=== PATIENT | female | born 1980 | race Caucasian/White ===

== ENCOUNTER 2022-01-26 08:13 | Inpatient (IN) | payer MEDICARE ==
[~2022-01-26] VITALS: Ht 167.6 cm; Wt 63.0 kg
[2022-01-26 09:22] LABS: BASOPHILS % (AUTO) 0.5 % (0.0-2.0); EOSINOPHILS % (AUTO) 0.4 % (1.0-6.0); HEMATOCRIT 42.8 % (36-46); HEMOGLOBIN 14.1 g/dL (12.0-16.0); LYMPHOCYTES # (AUTO) 2.2 K/uL (1.0-4.8); LYMPHOCYTES % (AUTO) 20.4 % (22.0-44.0); MEAN CORPUSCULAR HEMOGLOBIN 27.7 pg (26.0-34.0); MEAN CORPUSCULAR VOLUME 84 fL (80-100); MONOCYTES # (AUTO) 1.1 K/uL (0.1-1.0); MONOCYTES % (AUTO) 10.2 % (2.0-9.0); NEUTROPHILS # (AUTO) 7.4 K/uL (1.8-7.7); NEUTROPHILS % (AUTO) 68.5 % (40.0-70.0); PLATELET COUNT (AUTO) 367 K/uL (150-450); RED CELL DISTRIBUTION WIDTH 14.4 % (11.5-14.5)
[2022-01-26] MEDS ORDERED: DiphenhydrAMINE HCL 50 MG/ML VIAL IM ONE (09:30)
[2022-01-26] MEDS ORDERED: LORazepam 2 MG/ML VIAL IM ONE (09:30)
[2022-01-26] MEDS ORDERED: HALOPERIDOL LACTATE 5 MG/ML VIAL IM ONE (09:30)
[2022-01-26 09:38] LABS: ALANINE AMINOTRANSFERASE 95 U/L (12-78); ALBUMIN 3.3 g/dL (3.4-5.0); ALKALINE PHOSPHATASE 79 U/L (46-116); ANION GAP 16 mmol/L (8-16); ASPARTATE AMINOTRANSFERASE 129 U/L (15-37); BILIRUBIN,TOTAL 0.6 mg/dL (0.1-1.0); CALCIUM, TOTAL 9.5 mg/dL (8.8-10.5); CARBON DIOXIDE 26 mmol/L (22-29); CHLORIDE 98 mmol/L (98-107); CREATININE 1.33 mg/dL (0.60-1.30); GLUCOSE,RANDOM 139 mg/dL (70-110); SODIUM SERUM 140 mmol/L (136-145); TOTAL PROTEIN, SERUM 8.1 g/dL (6.4-8.2); UREA NITROGEN, BLOOD 21 mg/dL (7-18)
[2022-01-26 09:44] LABS: GLOMERULAR FILTR. RATE CALC 44 mL/min (>60); POTASSIUM 2.7 mmol/L (3.5-5.1)
[2022-01-26] MEDS ORDERED: POTASSIUM CHLORIDE 10% 40 MEQ/30 ML LIQUID UDCUP PO ONE ×2 (10:00→11:30)
[2022-01-26 11:26] LABS: AMPHET/METH SCREEN,URINE NEGATIVE (NEGATIVE); BARBITURATE SCREEN, URINE NEGATIVE (NEGATIVE); BENZODIAZEPINES SCREEN,URINE NEGATIVE (NEGATIVE); CANNABINOID SCREEN,URINE POSITIVE (NEGATIVE); COCAINE SCREEN,URINE NEGATIVE (NEGATIVE); METHADONE SCREEN, URINE NEGATIVE (NEGATIVE); OPIATE SCREEN,URINE NEGATIVE (NEGATIVE)
[2022-01-26 11:29] LABS: PHENCYCLIDINE SCREEN,URINE NEGATIVE (NEGATIVE)
[2022-01-26 11:50] LABS: COVID AG,FIA SOURCE NASAL SWAB
[2022-01-26] MEDS ORDERED: LORazepam 2 MG TABLET PO ONE (13:30)
[2022-01-26] MEDS ORDERED: OLANZapine 5 MG TABLET PO ONE (13:30)
[2022-01-26] MEDS ORDERED: DiphenhydrAMINE HCL 25 MG CAPSULE PO ONE (13:30)
[2022-01-26 18:32] VITALS: BP 136/91
[2022-01-26] MEDS: ZOLPIDEM TARTRATE 10 MG TABLET PO PRN (21:05)
[2022-01-27] MEDS: OLANZapine 5 MG RAPDIS TABLET PO PRN ×3 (00:37→21:51)
[2022-01-27 03:12] VITALS: BP 138/84
[2022-01-27] MEDS: LORazepam 2 MG TABLET PO PRN ×4 (03:12→21:28)
[2022-01-27 06:35] LABS: ALANINE AMINOTRANSFERASE 96 U/L (12-78); ALBUMIN 3.1 g/dL (3.4-5.0); ALKALINE PHOSPHATASE 70 U/L (46-116); ANION GAP 16 mmol/L (8-16); ASPARTATE AMINOTRANSFERASE 85 U/L (15-37); BILIRUBIN,TOTAL 0.5 mg/dL (0.1-1.0); CALCIUM, TOTAL 9.1 mg/dL (8.8-10.5); CARBON DIOXIDE 24 mmol/L (22-29); CHLORIDE 101 mmol/L (98-107); CREATININE 0.95 mg/dL (0.60-1.30); GLUCOSE,RANDOM 160 mg/dL (70-110); POTASSIUM 3.3 mmol/L (3.5-5.1); SODIUM SERUM 141 mmol/L (136-145); TOTAL PROTEIN, SERUM 7.7 g/dL (6.4-8.2); UREA NITROGEN, BLOOD 19 mg/dL (7-18)
[2022-01-27 06:47] LABS: GLOMERULAR FILTR. RATE CALC > 60 mL/min (>60)
[2022-01-27] MEDS ORDERED: POTASSIUM CHLORIDE 20 MEQ ER TABLET PO ONE (08:15)
[2022-01-27] MEDS ORDERED: MAGNESIUM HYDROXIDE SUSPENSION 30 ML UDCUP PO PRN (09:45)
[2022-01-27] MEDS ORDERED: PROMETHAZINE HCL 25 MG TABLET PO PRN (09:45)
[2022-01-27] MEDS ORDERED: LOPERAMIDE HCL 2 MG CAPSULE PO PRN (09:45)
[2022-01-27] MEDS ORDERED: GuaiFENesin/D-METHORPHAN [SUGAR-FREE] 200-20MG/10 ML SYRUP UDCUP PO PRN (09:45)
[2022-01-27] MEDS ORDERED: ACETAMINOPHEN 325 MG TABLET PO PRN (09:45)
[2022-01-27] MEDS: OLANZapine 5 MG RAPDIS TABLET PO SCH ×2 (13:00→15:59)
[2022-01-27] MEDS: THIAMINE 100 MG TABLET PO SCH (16:00)
[2022-01-27 16:07] VITALS: BP 143/77
[2022-01-27] MEDS ORDERED: IBUPROFEN 600 MG TABLET PO PRN (16:45)
[2022-01-27 20:12] VITALS: BP 134/78
[2022-01-27] MEDS: MELATONIN 5 MG TABLET PO SCH (20:20)
[2022-01-27] MEDS: DIVALPROEX SODIUM 500 MG ER TABLET PO SCH (20:20)
[2022-01-28] MEDS ORDERED: HALOPERIDOL LACTATE 5 MG/ML VIAL IM ONE (00:45)
[2022-01-28] MEDS ORDERED: LORazepam 2 MG/ML VIAL ONE (00:47)
[2022-01-28] MEDS ORDERED: HALOPERIDOL LACTATE 5 MG/ML VIAL ONE (00:48)
[2022-01-28] MEDS ORDERED: DiphenhydrAMINE HCL 50 MG/ML VIAL ONE (00:49)
[2022-01-28] MEDS ORDERED: DiphenhydrAMINE HCL 50 MG/ML VIAL IM ONE (01:00)
[2022-01-28] MEDS ORDERED: LORazepam 2 MG/ML VIAL IM ONE (01:00)
[2022-01-28] MEDS: ZOLPIDEM TARTRATE 10 MG TABLET PO PRN (01:51)
[2022-01-28] MEDS: THIAMINE 100 MG TABLET PO SCH ×2 (07:48→17:08)
[2022-01-28] MEDS: FOLIC ACID 1 MG TABLET PO SCH (07:48)
[2022-01-28] MEDS: LORazepam 2 MG TABLET PO PRN (07:48)
[2022-01-28] MEDS: OMEGA-3/DHA/EPA/FISH OIL 1,000 MG CAPSULE PO SCH (07:48)
[2022-01-28] MEDS: NALTREXONE HCL 50 MG TABLET PO SCH (07:49)
[2022-01-28] MEDS: MULTIVITAMINS WITH MINERALS, THERAPEUTIC TABLET PO SCH (07:49)
[2022-01-28] MEDS: OLANZapine 5 MG RAPDIS TABLET PO SCH ×3 (07:49→17:08)
[2022-01-28 08:00] VITALS: BP 141/77
[2022-01-28 08:48] LABS: ALANINE AMINOTRANSFERASE 98 U/L (12-78); ALBUMIN 3.3 g/dL (3.4-5.0); ALKALINE PHOSPHATASE 69 U/L (46-116); ANION GAP 7 mmol/L (8-16); ASPARTATE AMINOTRANSFERASE 56 U/L (15-37); BILIRUBIN,TOTAL 0.6 mg/dL (0.1-1.0); CALCIUM, TOTAL 9.5 mg/dL (8.8-10.5); CARBON DIOXIDE 26 mmol/L (22-29); CHLORIDE 102 mmol/L (98-107); GLUCOSE,RANDOM 118 mg/dL (70-110); POTASSIUM 3.8 mmol/L (3.5-5.1); SODIUM SERUM 135 mmol/L (136-145); TOTAL PROTEIN, SERUM 7.8 g/dL (6.4-8.2); UREA NITROGEN, BLOOD 19 mg/dL (7-18)
[2022-01-28 08:55] LABS: HEMOGLOBIN A1C 5.6 % (3.8-5.6)
[2022-01-28 08:58] LABS: GLOMERULAR FILTR. RATE CALC > 60 mL/min (>60)
[2022-01-28] MEDS ORDERED: FLUoxetine HCL 20 MG CAPSULE PO SCH (09:00)
[2022-01-28 09:55] LABS: CHOL/HDL RATIO 4.6 (3.9-5.7); FREE T4 (FREE THYROXINE) 1.84 ng/dL (0.76-1.46); THYROID STIMULATING HORMONE 1.8 uIU/mL (0.36-3.74)
[2022-01-28 16:59] VITALS: BP 130/70
[2022-01-28] MEDS: MELATONIN 5 MG TABLET PO SCH (20:23)
[2022-01-28] MEDS: DIVALPROEX SODIUM 500 MG ER TABLET PO SCH (21:00)
[2022-01-29] MEDS: LORazepam 2 MG TABLET PO PRN ×3 (00:04→17:57)
[2022-01-29] MEDS: OLANZapine 5 MG RAPDIS TABLET PO PRN (00:05)
[2022-01-29 08:00] VITALS: BP 119/83
[2022-01-29] MEDS: FOLIC ACID 1 MG TABLET PO SCH (08:39)
[2022-01-29] MEDS: THIAMINE 100 MG TABLET PO SCH ×2 (08:39→17:58)
[2022-01-29] MEDS: MULTIVITAMINS WITH MINERALS, THERAPEUTIC TABLET PO SCH (08:39)
[2022-01-29] MEDS: OMEGA-3/DHA/EPA/FISH OIL 1,000 MG CAPSULE PO SCH (08:39)
[2022-01-29] MEDS: OLANZapine 5 MG RAPDIS TABLET PO SCH ×3 (08:40→16:17)
[2022-01-29] MEDS: NALTREXONE HCL 50 MG TABLET PO SCH (08:48)
[2022-01-29 11:07] LABS: HEPATITIS C AB (EIA) <0.1 s/co ratio (0.0-0.9)
[2022-01-29] MEDS: HydrOXYzine PAMOATE 50 MG CAPSULE PO PRN ×2 (12:15→16:17)
[2022-01-29 16:18] VITALS: BP 99/48
[2022-01-29] MEDS: MELATONIN 5 MG TABLET PO SCH (21:30)
[2022-01-29] MEDS: VALPROIC ACID 250 MG/5 ML SOLUTION UDCUP PO SCH (21:30)
[2022-01-30] MEDS: OMEGA-3/DHA/EPA/FISH OIL 1,000 MG CAPSULE PO SCH (08:05)
[2022-01-30] MEDS: MULTIVITAMINS WITH MINERALS, THERAPEUTIC TABLET PO SCH ×2 (08:05→08:32)
[2022-01-30] MEDS: OLANZapine 5 MG RAPDIS TABLET PO SCH ×4 (08:05→16:31)
[2022-01-30] MEDS: THIAMINE 100 MG TABLET PO SCH ×3 (08:05→16:31)
[2022-01-30] MEDS: NALTREXONE HCL 50 MG TABLET PO SCH ×3 (08:06→08:32)
[2022-01-30] MEDS: HydrOXYzine PAMOATE 50 MG CAPSULE PO PRN ×2 (08:06→23:43)
[2022-01-30] MEDS: FOLIC ACID 1 MG TABLET PO SCH ×2 (08:06→08:31)
[2022-01-30 08:32] VITALS: BP 115/81
[2022-01-30] MEDS ORDERED: OLAN5TAB94 PO (15:53)
[2022-01-30] MEDS ORDERED: VALP250S23 PO (15:53)
[2022-01-30] MEDS ORDERED: MELA5TAB40 PO (15:53)
[2022-01-30] MEDS ORDERED: OMEG-135 PO (15:53)
[2022-01-30] MEDS: MELATONIN 5 MG TABLET PO SCH (20:14)
[2022-01-30] MEDS: VALPROIC ACID 250 MG/5 ML SOLUTION UDCUP PO SCH (20:18)
[2022-01-30] MEDS: ZOLPIDEM TARTRATE 10 MG TABLET PO PRN (23:02)
[2022-01-30] MEDS: LORazepam 2 MG TABLET PO PRN (23:43)
[2022-01-31] MEDS: THIAMINE 100 MG TABLET PO SCH ×2 (08:16→17:00)
[2022-01-31] MEDS: MULTIVITAMINS WITH MINERALS, THERAPEUTIC TABLET PO SCH (08:16)
[2022-01-31] MEDS: FOLIC ACID 1 MG TABLET PO SCH (08:16)
[2022-01-31] MEDS: OMEGA-3/DHA/EPA/FISH OIL 1,000 MG CAPSULE PO SCH (08:17)
[2022-01-31] MEDS: NALTREXONE HCL 50 MG TABLET PO SCH (08:17)
[2022-01-31] MEDS: OLANZapine 5 MG RAPDIS TABLET PO SCH ×3 (08:17→17:00)
[2022-01-31 08:30] VITALS: BP 123/81
== END 2022-01-31 14:00 | disposition home or self-care (01) | DRG 885 ==
LOC: EMS 08:15 → 3EC 18:00
PROVIDERS: ADMIT Psychiatry & Neurology Psychiatry; ATTEND Psychiatry & Neurology Psychiatry
DX: F25.1 Schizoaffective disorder, depressive type (principal); N18.9 Chronic kidney disease, unspecified; R45.851 Suicidal ideations; F31.9 Bipolar disorder, unspecified; F41.9 Anxiety disorder, unspecified; G89.29 Other chronic pain; I12.9 Hypertensive chronic kidney disease with stage 1 through stage 4 chronic kidney disease, or unspecified chronic kidney disease; E78.5 Hyperlipidemia, unspecified; Z20.822 Contact with and (suspected) exposure to COVID-19; E87.6 Hypokalemia; Z55.9 Problems related to education and literacy, unspecified; Z59.9 Problem related to housing and economic circumstances, unspecified; Z63.9 Problem related to primary support group, unspecified; Z65.3 Problems related to other legal circumstances; Z91.14 Patient's other noncompliance with medication regimen; Z79.899 Other long term (current) drug therapy
CPT/HCPCS: 80053; 80061; 80074; 80164; 83036; 84439; 84443; 84703; 85025; 86592; 99285; G0480; J1200; J1630; J2060; Q9967